=== PATIENT | male | born 2000 | race Caucasian/White ===

== ENCOUNTER 2023-03-07 18:09 | Observation (INO) | payer OTHER ==
[~2023-03-07 18:09] MED LIST: Iopamidol 300 61% 100 ML VIAL FS ONE
[2023-03-07 19:50] LABS: #Eosinphils 0.2 10x3/uL (0.0-0.5); #Monocytes 1.2 10x3/uL (0.0-1.1); #Neutrophils 11.1 10x3/uL (1.5-8.4); %Basophils 0.3 % (0.0-2.0); %Eosinophils 1.5 % (0.0-6.0); %Lymphocytes 11.9 % (18.0-47.0); %Monocytes 8.1 % (0.0-10.0); %Neutrophils 77.9 % (40.0-75.0); Hematocrit 44.6 % (38.8-50.0); Hemoglobin 15.5 g/dL (13.5-17.5); Mean Corpuscular HGB CONC 34.8 g/dL (32.0-36.0); Mean Corpuscular Volume 86.3 fl (81.2-95.1); Mean Platelet Volume 8.9 fl (7.4-10.4); Platelet Count 211 10x3/uL (150-450); RBC Distribution Width 13.2 % (11.5-14.5); Red Blood Cell (RBC) Count 5.17 10x6/uL (4.32-5.72); White Blood Cell (WBC) Count 14.3 10x3/uL (3.5-10.5)
[2023-03-07 20:02] LABS: ALT (SGPT) 20 U/L (8-55); AST (SGOT) 13 U/L (5-34); Albumin 4.4 g/dL (3.5-5.0); Alkaline Phosphatase 46 U/L (40-110); Anion Gap 13 mmol/L (10-20); BUN (Urea Nitrogen) 17 mg/dL (8.9-20.6); Bilirubin, Total 1.1 mg/dL (0.2-1.2); Calc. Creatinine Clearance 0 mL/min (70-130); Calcium 9.7 mg/dL (7.8-10.44); Carbon Dioxide 27 mmol/L (22-29); Chloride 102 mmol/L (98-107); Estimated GFR 104; Globulin 2.9 g/dL (2.4-3.5); Glucose 100 mg/dL (70-105); Potassium 3.9 mmol/L (3.5-5.1); Protein, Total 7.3 g/dL (6.0-8.3); Sodium 138 mmol/L (136-145)
[2023-03-07 20:28] LABS: Bilirubin Neg (Negative); Blood, Urine Negative (Negative); Clarity Clear (Clear); Glucose, Urine (Dipstick) Normal (Negative); Ketone, Urine Negative (Negative); Leukocyte Negative (Negative); Nitrite Negative (Negative); Protein, Urine (Dipstick) 15 mg/dl (Neg-Trace); Specific Gravity, Urine 1.015 (1.005-1.030)
[2023-03-07 20:49] LABS: Bacteria/HPF 1+ HPF (None Seen); CAUTI Indications for Culture Dysuria,urgency,freq; Mucous/LPF 2+ LPF (<2+); RBC/HPF None Seen HPF (0-3); Squamous Epithelial 0-3 HPF (0-3); Urine Culture Reflex No No; WBC/HPF 0-3 HPF (0-3)
[2023-03-07] MEDS ORDERED: Morphine 4 MG/ML VIAL ONE (21:30)
[2023-03-07] MEDS ORDERED: Ondansetron PF 4 MG/2 ML Vial ONE (21:30)
[2023-03-07] MEDS ORDERED: Piperacillin/Tazobactam 3.375 GM VIAL ONE (22:42)
[2023-03-07] MEDS ORDERED: Nicotine 14 MG PATCH TOP SCH (23:15)
[2023-03-07] MEDS ORDERED: Acetaminophen 325 MG TAB ONE (23:15)
[2023-03-08 00:31] VITALS: BMI 25.7
[2023-03-08] MEDS ORDERED: Morphine 4 MG/ML VIAL ONE ×2 (03:00→07:37)
[2023-03-08] MEDS ORDERED: Piperacillin/Tazobactam 3.375 GM VIAL ONE (06:07)
[2023-03-08] MEDS ORDERED: Ketorolac Tromethamine 30 MG/ML VIAL ONE (07:37)
[2023-03-08] MEDS ORDERED: Bupivacaine PF 0.5% 30 ML VIAL ONE (07:48)
[2023-03-08] MEDS ORDERED: EPINEPHrine 1 MG/ML VIAL ONE (07:48)
[2023-03-08] MEDS ORDERED: Succinylcholine 200 MG/10 ml SYRINGE FS ONE (08:14)
[2023-03-08] MEDS ORDERED: fentaNYL 50 mcg/mL 1 mL Vial ONE (08:14)
[2023-03-08] MEDS ORDERED: Midazolam HCl 2 mg/2 ml Vial ONE (08:14)
[2023-03-08] MEDS ORDERED: Dexamethasone 4 mg/ml Vial ONE (08:14)
[2023-03-08] MEDS ORDERED: Ondansetron PF 4 MG/2 ML Vial ONE (08:14)
[2023-03-08] MEDS ORDERED: Rocuronium Bromide 10 MG/ML (10ML VIAL) ONE (08:14)
[2023-03-08] MEDS ORDERED: Lidocaine 1% PF 5 ML VIAL ONE (08:14)
[2023-03-08] MEDS ORDERED: PROPOFOL 20 ML ONE ×2 (08:14→09:23)
[2023-03-08] MEDS ORDERED: HYDROmorphone 0.5 MG/0.5 ML SYRINGE ONE (08:15)
[2023-03-08] MEDS ORDERED: SUGAMMADEX SODIUM 200 MG/2 ML VIAL ONE (08:15)
[2023-03-08] MEDS ORDERED: Ibuprofen 600 MG TAB PO PRN (08:30)
[2023-03-08] MEDS ORDERED: traMADol HCl 50 MG TAB PO PRN (08:30)
[2023-03-08] MEDS ORDERED: Acetaminophen 500 MG TAB PO PRN (08:30)
[2023-03-08] MEDS ORDERED: FLU VACC QS2023-24(6MOS UP)/PF 60 MCG/0.5 ML SYRINGE IM ONE (09:00)
[2023-03-08] MEDS ORDERED: Acetaminophen 500 MG TAB PO SCH (09:00)
[2023-03-08] MEDS ORDERED: HYDROcodone/Acetaminophen 5/325 mg Tablet ONE (10:07)
== END 2023-03-08 11:10 | disposition home or self-care (01) ==
LOC: CSHERS 18:09 → CSHERHOLD 22:40 → INTOOBSV 22:40
PROVIDERS: ADMIT Surgery; ATTEND Surgery
PROC: 0DTJ4ZZ Resection of Appendix, Percutaneous Endoscopic Approach (ICD-10-PCS; principal; 2023-03-08)
DX: K35.30 Acute appendicitis with localized peritonitis, without perforation or gangrene (principal); F31.9 Bipolar disorder, unspecified
CPT/HCPCS: 36415; 74177; 80053; 81001; 83690; 85025; 87040; 88304; 96361; 96374; 96375; 96376; A4649; G0378; J0171; J1100; J1170; J1885; J2250; J2270; J2405; J2543; J2704; J3010; Q9967; S0020

== ENCOUNTER 2024-02-08 16:45 | Outpatient (CLI) | payer OTHER | END 2024-02-08 16:46 | disposition home or self-care (01) | LOC: CSHRAD 16:45 | PROVIDERS: ATTEND Family Medicine | DX: S90.31XA Contusion of right foot, initial encounter (principal); S99.921A Unspecified injury of right foot, initial encounter; M25.571 Pain in right ankle and joints of right foot; S92.354A Nondisplaced fracture of fifth metatarsal bone, right foot, initial encounter for closed fracture ==